=== PATIENT | male | born 1960 | race Caucasian/White ===

== ENCOUNTER → 2024-01-26 16:22 | Outpatient (REF) | payer OTHER, SELFPAY | LOC: RAD 16:22 | PROVIDERS: ATTENDING PHYSICIAN Internal Medicine Critical Care Medicine; FAMILY PHYSICIAN Internal Medicine | DX: R91.8 Other nonspecific abnormal finding of lung field (principal) | CPT/HCPCS: 71250 ==

== ENCOUNTER → 2024-08-23 09:00 | Outpatient (REF) | payer OTHER, SELFPAY | LOC: RAD 09:00 | PROVIDERS: ATTENDING PHYSICIAN Nurse Practitioner Adult Health; FAMILY PHYSICIAN Internal Medicine; REFERRING PHYSICIAN Internal Medicine Critical Care Medicine | DX: R09.02 Hypoxemia (principal); R06.02 Shortness of breath; F17.210 Nicotine dependence, cigarettes, uncomplicated | CPT/HCPCS: 71250; 93306 ==

== ENCOUNTER 2024-09-04 11:47 | Emergency (ER) | payer OTHER, SELFPAY ==
[2024-09-04] VITALS (11 sets, daily range): BP systolic 144–205; BP diastolic 97–163
--- NOTE | 2024-09-04 12:02 | ED.GENMED ---
ED Provider Triage
<Thiago Callejas PA-C - Last Filed: 09/04/24 12:05>
-
Patient seen by provider in Triage?: Seen in Triage
64-year-old male with history of COPD chronically on 2 L of oxygen presents with onset of scapular upper back pain and chest pain that is pleuritic in nature. He is associated with shortness of breath. The pain is made worse with deep breathing.
He is not requiring additional oxygen. No known injury.
EKG and labs ordered through triage. Ordered CT of chest PE protocol after discussing with radiology
History of Present Illness
<Thiago Callejas PA-C - Last Filed: 09/04/24 12:05>
General
Chief Complaint: Back Pain
Time Seen by Provider: 09/04/24 12:15
<Brandi Marshall DO - Last Filed: 09/04/24 19:30>
History of Present Illness
History of Present Illness:
64-year-old male with history of COPD on 2 L O2 and polycystic kidney disease presenting to the emergency department for difficulty breathing and back pain. Patient reports symptoms started about 6 PM yesterday. Denies any inciting injury or
trauma. Pain is worse with deep inspiration. Also notes increased cough, productive. Reports generalized chest wall pain. Denies fever. Denies abdominal pain or GI complaints. Reports that he has been increasing his oxygen at home. Denies
known history of blood clots. Denies additional acute medical complaints.
Past History
<Thiago Callejas PA-C - Last Filed: 09/04/24 12:05>
Past History
ED Past Medical History: Asthma, COPD, HTN, Hypercholesterolemia and Other (peptic ulcer with associated blood loss; scarlet fever, Chronic back pain, Polycystic kidney disease)
ED Past Surgical History: Orthopedic (Low back surgery)
Social History
Tobacco: Smoker
Alcohol: None
Drug: None
Personal:
Living: with family
Employment: Employed
Family History
Family History: Other (reviewed and Noncontributory)
Phy Exam
<Brandi Marshall DO - Last Filed: 09/04/24 19:30>
Physical Exam
Physical Exam:
General: Well-appearing, no clinical signs of dehydration, nontoxic and in no acute distress
HEENT: protecting airway
Neck: appears supple
CV: Normal heart rate, regular rhythm
Resp: No accessory muscle use, no increased work of breathing, rhonchorous breath sounds bilaterally
Abd: Soft and non-distended, no tenderness to palpation, normal bowel sounds
Extremities: No deformities, no swelling
Neuro: alert, no focal neurologic deficit
: deferred
Rectal: deferred
Psych: Normal affect
Skin: Intact
Course
<Thiago Callejas PA-C - Last Filed: 09/04/24 12:05>
Orders/Labs/Results
Orders:
Orders
09/04/24 12:01
Electrocardiogram (*1) Urgent
Reason for Study: Chest Pain
EKG- Treatment ONCE
09/04/24 12:03
Complete Blood Count/With Diff Urgent
Comprehensive Metabolic Panel Urgent
Troponin I Urgent
09/04/24 12:34
D-Dimer Urgent
PTT Urgent
09/04/24 12:44
COVID-19 Antigen Urgent
Source: Nasal Swab
09/04/24 13:47
CR Chest - 2 Views Urgent
Comment:
Reason For Exam: cough, SOB
09/04/24 14:53
Morphine Sulfate 4 mg IV NOW STA
09/04/24 14:59
Add On- LAB Urgent
Tests Added?: d-dimer
09/04/24 15:30
HYDROmorphone [Dilaudid] 1 mg IV NOW STA
09/04/24 16:20
CT Chest W/o Iv Contrast Urgent
Comment:
Reason For Exam: cough, SOB
09/04/24 19:25
Doxycycline [Vibramycin] 100 mg PO NOW STA
HYDROmorphone [Dilaudid] 1 mg IV NOW STA
Prednisone [Deltasone] 60 mg PO NOW STA
Abnormal Lab Results
09/04/24
12:03
WBC 11.7 H 10^3/uL
(4.8-10.8)
RBC 4.15 L 10^6/uL
(4.70-6.10)
Hgb 12.0 L g/dL
(13.0-18.0)
Hct 38.4 L %
(39.0-52.0)
MCHC 31.3 L g/dL
(33.0-37.0)
RDW 16.5 H %
(11.5-14.5)
Absolute Neuts (auto) 10.6 H 10^3/uL
(1.4-6.5)
Absolute Lymphs (auto) 0.5 L 10^3/uL
(1.2-3.4)
Neutrophils % 90.4 H %
(42.2-75.2)
Lymphocytes % 3.9 L %
(20.5-51.1)
Carbon Dioxide 21 L mmol/L
(22-30)
BUN 36 H mg/dl
(9-20)
Creatinine 2.5 H mg/dL
(0.7-1.3)
Glucose 156 H mg/dl
(70-99)
09/04/24 12:03
09/04/24 12:03
Vital Signs
Initial and Last Documented VS:
Initial Vital Signs
Temp Pulse Resp BP Pulse Ox
98.0 F 80 20 155/111 96
09/04/24 11:54 09/04/24 11:54 09/04/24 11:54 09/04/24 11:54 09/04/24 11:54
Last Documented Vital Signs
Temp Pulse Resp BP Pulse Ox
98.0 F 75 17 160/117 100
09/04/24 11:54 09/04/24 17:30 09/04/24 17:30 09/04/24 17:00 09/04/24 17:30
<Brandi Marshall, DO - Last Filed: 09/04/24 19:30>
Orders/Labs/Results
Orders:
Orders
09/04/24 12:01
Electrocardiogram (*1) Urgent
Reason for Study: Chest Pain
EKG- Treatment ONCE
09/04/24 12:03
Complete Blood Count/With Diff Urgent
Comprehensive Metabolic Panel Urgent
Troponin I Urgent
09/04/24 12:34
D-Dimer Urgent
PTT Urgent
09/04/24 12:44
COVID-19 Antigen Urgent
Source: Nasal Swab
09/04/24 13:47
CR Chest - 2 Views Urgent
Comment:
Reason For Exam: cough, SOB
09/04/24 14:53
Morphine Sulfate 4 mg IV NOW STA
09/04/24 14:59
Add On- LAB Urgent
Tests Added?: d-dimer
09/04/24 15:30
HYDROmorphone [Dilaudid] 1 mg IV NOW STA
09/04/24 16:20
CT Chest W/o Iv Contrast Urgent
Comment:
Reason For Exam: cough, SOB
09/04/24 19:25
Doxycycline [Vibramycin] 100 mg PO NOW STA
HYDROmorphone [Dilaudid] 1 mg IV NOW STA
Prednisone [Deltasone] 60 mg PO NOW STA
Abnormal Lab Results
09/04/24
12:03
WBC 11.7 H 10^3/uL
(4.8-10.8)
RBC 4.15 L 10^6/uL
(4.70-6.10)
Hgb 12.0 L g/dL
(13.0-18.0)
Hct 38.4 L %
(39.0-52.0)
MCHC 31.3 L g/dL
(33.0-37.0)
RDW 16.5 H %
(11.5-14.5)
Absolute Neuts (auto) 10.6 H 10^3/uL
(1.4-6.5)
Absolute Lymphs (auto) 0.5 L 10^3/uL
(1.2-3.4)
Neutrophils % 90.4 H %
(42.2-75.2)
Lymphocytes % 3.9 L %
(20.5-51.1)
Carbon Dioxide 21 L mmol/L
(22-30)
BUN 36 H mg/dl
(9-20)
Creatinine 2.5 H mg/dL
(0.7-1.3)
Glucose 156 H mg/dl
(70-99)
09/04/24 12:03
09/04/24 12:03
Vital Signs
Initial and Last Documented VS:
Initial Vital Signs
Temp Pulse Resp BP Pulse Ox
98.0 F 80 20 155/111 96
09/04/24 11:54 09/04/24 11:54 09/04/24 11:54 09/04/24 11:54 09/04/24 11:54
Last Documented Vital Signs
Temp Pulse Resp BP Pulse Ox
98.0 F 75 17 160/117 100
09/04/24 11:54 09/04/24 17:30 09/04/24 17:30 09/04/24 17:00 09/04/24 17:30
<Brandi Marshall DO - Last Filed: 09/04/24 19:30>
MDM/Problems Addressed
MDM/Problems Addressed:
64-year-old male with history of COPD on 2 L O2 presenting to the emergency department for cough, shortness of breath, back pain. Vital signs on arrival significant for mild hypertension.
On exam patient in no acute respiratory distress, stable on supplemental O2. Rhonchorous breath sounds bilaterally. Symptoms sound infectious in nature, reports worsening cough, pain with deep inspiration. No pleuritic nature of symptoms, PE is
also consideration. Protocol placed by physician health information assistant prior to my assessment, including CT of the chest. Feel reasonable. EKG obtained, nonischemic. Plan for laboratory analysis and continued respiratory monitoring.
12:40 - Patient with mild leukocytosis, again fitting with infection. No present SIRS criteria concern for sepsis
15:00 -chest x-ray without acute cardiopulmonary disease. Patient with elevated creatinine, GFR is less than 30, so unable to obtain CT PE study. Will add on D-dimer.
16:20 -dimer negative. At this time lower suspicion for PE. Patient however still symptomatic. Will obtain CT noncontrast
19:30 - CT shows show evidence of left-sided pneumonia. Patient remained stable from a respiratory standpoint, and in discussion with patient, would prefer to go home with outpatient management. Feel stable for discharge with outpatient follow-up,
will start on doxycycline. Will also treat with steroids given known COPD. Patient in agreement with plan. Return precautions discussed and patient verbalized understanding
<Brandi Marshall DO - Last Filed: 09/04/24 19:30>
*EKG
Interpreted by ED Provider?: Yes
EKG Intrepretation Date: 09/04/24
EKG Intrepretation Time: 12:39
Interpretation: normal
Heart Rate: 70
Rate: normal
Rhythm: sinus
[place]: normal axis
Interval: normal interval
QRS Pattern: normal QRS
Ischemia: no ischemia
*Critical Care Note
Total Time (30-74mins, 75-104mins- exclusive of procedures): Not Applicable
ED Attending Note
<Thiago Callejas PA-C - Last Filed: 09/04/24 12:05>
-
Portions of this chart may have been created with voice recognition software.� Occasional wrong word or��sound alike� substitutions may have occurred due to the inherent limitations of voice recognition software.
Discharge Plan
Departure
Patient Disposition: Home (Routine Discharge)
Date of Disposition: 09/04/24
Time of Disposition: 19:30
Patient with high blood pressure during this ER visit?: No
Condition: Good
Discharge Problem:
Community acquired pneumonia, Cough, Multifocal pneumonia
Instructions: Pneumonia, Adult (DC), Community-Acquired Pneumonia, Adult (DC)
Prescriptions:
New
doxycycline hyclate 100 mg capsule
100 mg PO BID 10 Days Qty: 20 0RF
prednisone 20 mg tablet
40 mg PO DAILY 5 Days Qty: 10 0RF
No Action
nifedipine 60 mg Tablet Extended Release 24hr
60 mg PO BID
terazosin 10 mg Capsule
10 mg PO HS
Jynarque 45 mg (AM)/ 15 mg (PM) Tablets, Sequential
1 ea PO BID
Trelegy Ellipta 100-62.5-25 mcg Blister With Device
1 inh INHALATION DAILY
prednisone 10 mg Tablet
30 mg PO DIRECTED
atorvastatin 20 mg Tablet
20 mg PO HS
metoprolol succinate 100 mg Tablet Extended Release 24 Hr
100 mg PO DAILY
dextroamphetamine-amphetamine [Adderall] 30 mg Tablet
30 mg PO DAILY
trazodone 100 mg Tablet
100 mg PO HS
pantoprazole 40 mg Tablet,Delayed Release (Dr/Ec)
40 mg PO BID
montelukast 10 mg Tablet
10 mg PO QPM
Centrum Silver Tablet
1 tab PO DAILY
duloxetine 60 mg Capsule,Delayed Release(Dr/Ec)
60 mg PO DAILY
Mucinex 1,200 mg Tablet Extended Release 12hr
1,200 mg PO BID
vitamin E98-nphkw acid
5,000 mcg PO DAILY
Referrals:
Jack Gao MD [Family Provider] -
Activity Restrictions/Additional Instructions:
You were seen in the emergency department for cough and back pain
You were found to have pneumonia. You were started on antibiotics. Please take as prescribed.
Please follow-up closely with your primary care physician.
Return to the emergency department for any worsening of your symptoms including increased difficulty breathing, or any development of chest pain, abdominal pain with persistent vomiting and inability to tolerate food or liquid by mouth (concern for
dehydration), weakness, headache or confusion, fever greater than 100.4, or any additional symptoms that are concerning to you.
Thank you for choosing [facility].
Interventions
Interventions:
*Risk Screen - Suicide Last Done: 09/04/24 11:54
*General Assessment Last Done: 09/04/24 11:54
*Neglect/Abuse Screening Last Done: 09/04/24 11:54
*ED COVID-19 Vaccine History Last Done: 09/04/24 11:54
ED-Musculoskeletal Assessment Last Done: 09/04/24 12:31
Discharge Date and Time
Print Language: CYMRAES
[2024-09-04 12:23] LABS: % Basophils 0.2 % (0-2); % Eosinophils 0.4 % (0-6); % Immature Granulocytes 0.3 % (0-0.5); % Lymphocytes 3.9 % (20.5-51.1); % Monocytes 4.8 % (1.7-9.3); % Neutrophils 90.4 % (42.2-75.2); Absolute Eosinophils 0.1 10^3/uL (0-0.7); Absolute Lymphocytes 0.5 10^3/uL (1.2-3.4); Absolute Monocytes 0.6 10^3/uL (0.1-0.6); Absolute Neutrophils 10.6 10^3/uL (1.4-6.5); Hematocrit 38.4 % (39.0-52.0); Mean Corp Hgb Conc. 31.3 g/dL (33.0-37.0); Mean Corpuscular Hgb 28.9 pg (27.0-31.0); Mean Corpuscular Volume 92.5 fL (80.0-94.0); Mean Platelet Volume 9.3 fL (7.4-10.4); Nucleated Red Blood Cells % 0 % (-); Platelet Count 277 10^3/uL (130-400); Red Blood Cell Count 4.15 10^6/uL (4.70-6.10); Red Cell Dist. Width 16.5 % (11.5-14.5); White Blood Cell Count 11.7 10^3/uL (4.8-10.8)
[2024-09-04 12:43] LABS: Troponin I < 0.012 ng/ml
[2024-09-04 12:44] LABS: ALT (SGPT) 24 U/L (0-50); AST (SGOT) 27 U/L (17-59); Albumin 4.2 g/dl (3.5-5.0); Alkaline Phosphatase 75 U/L (38-126); Blood Urea Nitrogen 36 mg/dl (9-20); Calcium 9.2 mg/dl (8.4-10.2); Carbon Dioxide 21 mmol/L (22-30); Chloride 105 mmol/L (98-107); Glucose 156 mg/dl (70-99); Potassium 5.1 mmol/L (3.5-5.1); Sodium 139 mmol/L (135-145); Total Bilirubin 0.7 mg/dl (0.2-1.3); Total Protein 6.9 g/dl (6.3-8.2); eGFR 28.34
[2024-09-04 12:50] LABS: APTT 30.6 Sec (23.4-35.0)
[2024-09-04 13:18] LABS: COVID-19 Antigen Negative (Negative)
[2024-09-04] MEDS: MORPHINE SULFATE 4 MG IV (14:58)
[2024-09-04] MEDS: DILAUDID 1 MG IV ×2 (15:35→19:37)
[2024-09-04 16:01] LABS: D-Dimer 0.34 ug/mlFEU (0.00-0.50)
[2024-09-04] MEDS: VIBRAMYCIN 100 MG PO (19:37)
[2024-09-04] MEDS: DELTASONE 60 MG PO (19:48)
== END 2024-09-04 20:07 | disposition home or self-care (01) ==
LOC: EMR 11:47
PROVIDERS: Physician Assistant; EMERGENCY PHYSICIAN Student in an Organized Health Care Education/Training Program; FAMILY PHYSICIAN Internal Medicine
DX: J18.9 Pneumonia, unspecified organism (principal); F17.200 Nicotine dependence, unspecified, uncomplicated; R05.9 Cough, unspecified; Z11.52 Encounter for screening for COVID-19
CPT/HCPCS: 99285; 96374; 96375; 96376; 71046; 71250; 80053; 84484; 85025; 85379; 85730; 87811; 93005

== ENCOUNTER 2024-10-08 13:01 | Emergency (ER) | payer OTHER, SELFPAY ==
[2024-10-08] VITALS (7 sets, daily range): BP systolic 133–162; BP diastolic 87–119; BMI 19.7
--- NOTE | 2024-10-08 14:51 | ED.GENMED ---
History of Present Illness
General
Chief Complaint: Breathing Problem
Time Seen by Provider: 10/08/24 14:51
History of Present Illness
History of Present Illness:
TIME OF INITIAL ENCOUNTER: 2:50 PM
HPI: Patient was diagnosed with pneumonia a month ago. Noncontrast CT suggested 'developing mild left lower lobe and right lower lobe pneumonia' at that time he was placed on doxycycline. There is no significant improvement so primary care doctor
put him on Levaquin 750 mg every other day (renal insufficiency). He later had a third course of antibiotics with Levaquin 250 mg daily for 10 days. He is concerned that he needs more IV antibiotic as he has rather significant pain. He does not
necessarily have any increased shortness of breath. States that he stopped smoking years ago and stopped vaping a few months ago.
EXAM:
GENERAL: Somewhat chronically ill-appearing, wearing nasal cannula oxygen
HEENT: Moist oral mucosa
CARDIOVASCULAR: No murmurs, normal heart rate, regular rhythm, No chest wall tenderness
PULMONARY: No respiratory distress, moving air well, no definite wheeze
ABDOMEN: Soft with no peritoneal signs, no tenderness
NEUROLOGIC: Excellent strength all extremities, no coordination deficits
PSYCHIATRIC: Appropriate mental status, normal insight and judgement
EXTREMITIES: Nontender, no edema, moves all extremities equally
SKIN: No rash, no lesions
NUMBER AND COMPLEXITY OF PROBLEMS ADDRESSED AT THE ENCOUNTER
� Chronic conditions affecting care: COPD, pneumonia, high blood pressure, hyperlipidemia, PCKD, T-cell lymphoma s/p radiation
� Acute Exacerbation and/or Progression of Chronic Illness: This is an acute but recurrent problem
� Differential Diagnosis includes: Pneumonia, PE, bronchitis
AMOUNT AND/OR COMPLEXITY OF DATA TO BE REVIEWED AND ANALYZED
� I performed an independent evaluation of and my interpretation is:
EKG: Sinus 81, nonspecific ST abnormality
CT:
X-rays: Chest x-ray shows mild hyperinflation with basilar opacities 'most likely related to subsegmental atelectasis/scarring' per the radiologist
Laboratory Studies: The white count is 7.0, hemoglobin 13.1, D-dimer 0.31, creatinine 2.8
Other:
� Review of other/old records: I relook at old records, I reviewed the CT report as summarized in HPI. When he was here last month, the white count was 11.7.
� Clinical information was obtained by an independent historian: I spoke to the brother at bedside
� Prescriptions/Medications Considered but not given:
� Further testing considered but not performed:
RISK OF COMPLICATIONS AND/OR MORBIDITY OR MORTALITY OF PATIENT MANAGEMENT
� Social determinants of health affecting care: Lives at home
� Discussion with other providers: I discussed case with Dr. Mendenhall who recommends checking CT as well but over wall no clear sign of need for inpatient treatment with IV antibiotics
� Escalation of care including admission/observation vs risk of discharge considered: The chest x-ray is relatively unremarkable.
ANY OTHER UPDATES:
5:15 PM: I reassessed patient. He is rather upset that he has not received anything for his pain. Cannot give NSAIDs due to his CKD. He states he has not been on anything other than Tylenol recently. He states he used to takes OxyContin. I
offered to give him Percocet however he says that he cannot wait and is upset that I did not offer Dilaudid. Will give a one-time dose of Dilaudid now. He states he is taking prednisone 20 mg.
6:10 PM: On assessment, the patient appears more comfortable after Dilaudid was given. CT imaging shows resolution of prior pneumonia. No indication for admission to the hospital for IV antibiotics.
Past History
Past History
ED Past Medical History: Asthma, COPD, HTN, Hypercholesterolemia and Other (peptic ulcer with associated blood loss; scarlet fever, Chronic back pain, Polycystic kidney disease)
ED Past Surgical History: Orthopedic (Low back surgery)
Social History
Tobacco: Smoker
Alcohol: None
Drug: None
Personal:
Living: with family
Employment: Employed
Family History
Family History: Other (reviewed and Noncontributory)
Phy Exam
Physical Exam
Physical Exam:
See HPI
Scores
Heart Failure Risk
Heart Failure Risk Score: Not Applicable
Course
Orders/Labs/Results
Orders:
Orders
10/08/24 13:07
Electrocardiogram (*1) Urgent
Reason for Study: Chest Pain
10/08/24 13:08
EKG- Treatment ONCE
CR Chest - 2 Views Urgent
Reason For Exam: sob
10/08/24 15:46
Basic Metabolic Panel Urgent
Complete Blood Count/With Diff Urgent
D-Dimer Urgent
10/08/24 15:50
CT Chest W/o Iv Contrast Urgent
Comment:
Reason For Exam: eval ?pneumonia; recommended by pulmonary; worsen
10/08/24 17:17
HYDROmorphone [Dilaudid] 1 mg IV NOW STA
Ondansetron Injectable [Zofran] 4 mg IV NOW STA
Abnormal Lab Results
10/08/24
15:46
RBC 4.38 L 10^6/uL
(4.70-6.10)
MCV 97.9 H fL
(80.0-94.0)
MCHC 30.5 L g/dL
(33.0-37.0)
RDW 15.2 H %
(11.5-14.5)
Absolute Lymphs (auto) 0.3 L 10^3/uL
(1.2-3.4)
Neutrophils % 92.7 H %
(42.2-75.2)
Lymphocytes % 3.6 L %
(20.5-51.1)
BUN 36 H mg/dl
(9-20)
Creatinine 2.8 H mg/dL
(0.7-1.3)
Glucose 139 H mg/dl
(70-99)
10/08/24 15:46
10/08/24 15:46
Vital Signs
Initial and Last Documented VS:
Initial Vital Signs
Temp Pulse Resp BP Pulse Ox
97.8 F 91 18 133/88 97
10/08/24 13:04 10/08/24 13:04 10/08/24 13:04 10/08/24 13:04 10/08/24 13:04
Last Documented Vital Signs
Temp Pulse Resp BP Pulse Ox
97.8 F 80 19 147/101 98
10/08/24 13:04 10/08/24 16:45 10/08/24 16:45 10/08/24 16:00 10/08/24 16:45
*Critical Care Note
Total Time (30-74mins, 75-104mins- exclusive of procedures): Not Applicable
ED Attending Note
-
Portions of this chart may have been created with voice recognition software.� Occasional wrong word or��sound alike� substitutions may have occurred due to the inherent limitations of voice recognition software.
Discharge Plan
Departure
Patient Disposition: Home (Routine Discharge)
Date of Disposition: 10/08/24
Time of Disposition: 18:06
Patient with high blood pressure during this ER visit?: Yes
Discharge Problem:
Pleurisy
Instructions: Pleurisy
Prescriptions:
No Action
nifedipine 60 mg Tablet Extended Release 24hr
60 mg PO BID
terazosin 10 mg Capsule
10 mg PO HS
Jynarque 45 mg (AM)/ 15 mg (PM) Tablets, Sequential
1 ea PO BID
Trelegy Ellipta 100-62.5-25 mcg Blister With Device
1 inh INHALATION DAILY
prednisone 10 mg Tablet
30 mg PO DIRECTED
atorvastatin 20 mg Tablet
20 mg PO HS
metoprolol succinate 100 mg Tablet Extended Release 24 Hr
100 mg PO DAILY
dextroamphetamine-amphetamine [Adderall] 30 mg Tablet
30 mg PO DAILY
trazodone 100 mg Tablet
100 mg PO HS
pantoprazole 40 mg Tablet,Delayed Release (Dr/Ec)
40 mg PO BID
montelukast 10 mg Tablet
10 mg PO QPM
Centrum Silver Tablet
1 tab PO DAILY
duloxetine 60 mg Capsule,Delayed Release(Dr/Ec)
60 mg PO DAILY
Mucinex 1,200 mg Tablet Extended Release 12hr
1,200 mg PO BID
vitamin P40-snjah acid
5,000 mcg PO DAILY
doxycycline hyclate 100 mg capsule
100 mg PO BID 10 Days Qty: 20 0RF
prednisone 20 mg tablet
40 mg PO DAILY 5 Days Qty: 10 0RF
Referrals:
Jaswinder Mendenhall MD [Active] - Follow up in 2-3 days
Jack Gao MD [Family Provider] -
Activity Restrictions/Additional Instructions:
We did give a one-time dose of Dilaudid. Your white blood cell count is normal. The blood clot screening test shows no sign of blood clot. Your kidney function is near baseline. EKG shows no acute abnormality, the CAT scan of the chest showed
'interval resolution of previously seen bilateral lower lobe pneumonia'. I spoke to Dr. Mendenhall (the on-call farm advisor) today�please follow-up with pulmonary
Interventions
Interventions:
*Risk Screen - Suicide Last Done: 10/08/24 13:04
*General Assessment Last Done: 10/08/24 13:04
*Neglect/Abuse Screening Last Done: 10/08/24 13:04
ED- Fall Risk Assessment Last Done: 10/08/24 13:22
*ED COVID-19 Vaccine History Last Done: 10/08/24 13:22
ED- Cardiac Assessment Last Done: 10/08/24 13:22
ED- Pulmonary Assessment Last Done: 10/08/24 13:22
Discharge Date and Time
Print Language: MOLDOVAN
[2024-10-08 15:56] LABS: % Basophils 0.1 % (0-2); % Eosinophils 0.1 % (0-6); % Immature Granulocytes 0.3 % (0-0.5); % Lymphocytes 3.6 % (20.5-51.1); % Monocytes 3.2 % (1.7-9.3); % Neutrophils 92.7 % (42.2-75.2); Absolute Lymphocytes 0.3 10^3/uL (1.2-3.4); Absolute Monocytes 0.2 10^3/uL (0.1-0.6); Absolute Neutrophils 6.5 10^3/uL (1.4-6.5); Hematocrit 42.9 % (39.0-52.0); Hemoglobin 13.1 g/dL (13.0-18.0); Mean Corp Hgb Conc. 30.5 g/dL (33.0-37.0); Mean Corpuscular Hgb 29.9 pg (27.0-31.0); Mean Corpuscular Volume 97.9 fL (80.0-94.0); Mean Platelet Volume 8.7 fL (7.4-10.4); Nucleated Red Blood Cells % 0 % (-); Platelet Count 255 10^3/uL (130-400); Red Blood Cell Count 4.38 10^6/uL (4.70-6.10); Red Cell Dist. Width 15.2 % (11.5-14.5)
[2024-10-08 16:11] LABS: D-Dimer 0.31 ug/mlFEU (0.00-0.50)
[2024-10-08 16:16] LABS: Blood Urea Nitrogen 36 mg/dl (9-20); Calcium 9.4 mg/dl (8.4-10.2); Carbon Dioxide 24 mmol/L (22-30); Chloride 106 mmol/L (98-107); Estimated Creatinine Clearance 25 ml/min; Glucose 139 mg/dl (70-99); Sodium 141 mmol/L (135-145); eGFR 24.74
[2024-10-08] MEDS: DILAUDID 1 MG IV (17:32)
[2024-10-08] MEDS: ZOFRAN 4 MG IV (17:33)
== END 2024-10-08 18:17 | disposition home or self-care (01) ==
LOC: EMR 13:01
PROVIDERS: EMERGENCY PHYSICIAN Emergency Medicine; FAMILY PHYSICIAN Internal Medicine
DX: R09.1 Pleurisy (principal); E78.00 Pure hypercholesterolemia, unspecified; J44.89 Other specified chronic obstructive pulmonary disease; F17.200 Nicotine dependence, unspecified, uncomplicated; I12.9 Hypertensive chronic kidney disease with stage 1 through stage 4 chronic kidney disease, or unspecified chronic kidney disease; N18.9 Chronic kidney disease, unspecified
CPT/HCPCS: 96374; 96375; 99285; 71046; 71250; 80048; 85025; 85379; 93005

== ENCOUNTER 2024-11-10 06:26 | Day surgery (SDC) | payer OTHER, SELFPAY ==
[2024-11-10 09:29] VITALS: BP 155/104
[2024-11-10 09:34] VITALS: BMI 19.7
[2024-11-10 09:37] VITALS: BMI 19.7
[2024-11-10 10:54] VITALS: BP 123/94
[2024-11-10 11:00] VITALS: BP 121/96
[2024-11-10 11:15] VITALS: BP 130/104
== END 2024-11-10 11:40 | disposition home or self-care (01) ==
LOC: GI 06:26
PROVIDERS: ATTENDING PHYSICIAN Specialist
DX: K92.1 Melena (principal); K22.89 Other specified disease of esophagus; K31.89 Other diseases of stomach and duodenum; K20.90 Esophagitis, unspecified without bleeding; K31.A0 Gastric intestinal metaplasia, unspecified
CPT/HCPCS: 43239; 88305; 88342

== ENCOUNTER 2024-12-06 23:55 | Inpatient (IN) | payer OTHER, SELFPAY ==
[2024-12-06 16:20] VITALS: BP 148/92
[2024-12-06 16:52] LABS: % Basophils 0.2 % (0-2); % Eosinophils 0.3 % (0-6); % Immature Granulocytes 0.4 % (0-0.5); % Lymphocytes 6.6 % (20.5-51.1); % Monocytes 2.8 % (1.7-9.3); % Neutrophils 89.7 % (42.2-75.2); Absolute Lymphocytes 0.7 10^3/uL (1.2-3.4); Absolute Monocytes 0.3 10^3/uL (0.1-0.6); Absolute Neutrophils 8.8 10^3/uL (1.4-6.5); Hematocrit 37.1 % (39.0-52.0); Hemoglobin 11.5 g/dL (13.0-18.0); Mean Corpuscular Hgb 28.9 pg (27.0-31.0); Mean Corpuscular Volume 93.2 fL (80.0-94.0); Mean Platelet Volume 9.7 fL (7.4-10.4); Nucleated Red Blood Cells % 0 % (-); Platelet Count 235 10^3/uL (130-400); Red Blood Cell Count 3.98 10^6/uL (4.70-6.10); Red Cell Dist. Width 13.2 % (11.5-14.5); White Blood Cell Count 9.8 10^3/uL (4.8-10.8)
[2024-12-06 17:04] LABS: ALT (SGPT) 26 U/L (0-50); APTT 31.6 Sec (23.4-35.0); AST (SGOT) 23 U/L (17-59); Albumin 4.1 g/dl (3.5-5.0); Alkaline Phosphatase 78 U/L (38-126); Blood Urea Nitrogen 32 mg/dl (9-20); Calcium 8.9 mg/dl (8.4-10.2); Carbon Dioxide 26 mmol/L (22-30); Chloride 101 mmol/L (98-107); Glucose 190 mg/dl (70-99); Sodium 137 mmol/L (135-145); Total Bilirubin 0.6 mg/dl (0.2-1.3); Total Protein 6.8 g/dl (6.3-8.2); eGFR 29.76
[2024-12-06 17:16] LABS: NT-proBNP 1790 pg/ml; Troponin I < 0.012 ng/ml
[2024-12-06 17:34] VITALS: BP 135/92
[2024-12-06 17:43] LABS: COVID-19 Antigen Negative (Negative)
--- NOTE | 2024-12-06 17:47 | ED.GENMED ---
History of Present Illness
General
Chief Complaint: Breathing Problem
Source: patient
Time Seen by Provider: 12/06/24 17:35
History of Present Illness
History of Present Illness:
64-year-old male presents to the emergency room complaining of shortness of breath, increased cough with increased mucus production and pain on the right side with breathing. Patient has a history of COPD. He is on chronic oxygen at 2 L. He has
noticed the above symptoms over the past week or so. He is increased his oxygen to 3 L which helped him some. He denies any recent travel or periods of immobilization. He is not been hospitalized recently. No known trauma.
Past History
Past History
ED Past Medical History: Asthma, COPD, HTN, Hypercholesterolemia and Other (peptic ulcer with associated blood loss; scarlet fever, Chronic back pain, Polycystic kidney disease)
ED Past Surgical History: Orthopedic (Low back surgery)
Social History
Tobacco: Smoker
Alcohol: None
Drug: None
Personal:
Living: with family
Employment: Employed
Family History
Family History: Other (reviewed and Noncontributory)
Phy Exam
Physical Exam
Physical Exam:
General: Awake, Alert, Oriented X3. Increased work of breathing, appears chronically ill with stigmata of COPD
Vitals: Afebrile, tachypneic
Head: Atraumatic
Eyes: Pupils equal, EOMI
Throat: Airway intact, no exudates
Neck: Trachea midline
Lungs: Decreased breath sounds diffusely, expiratory wheezing
Heart: Regular rate, no murmurs
Abd: Soft, Nontender, No pulsatile mass
Neuro: Nonfocal
Skin: Warm, dry, no rash
Extremities: pulses equal b/l, no edema
Scores
Heart Failure Risk
Heart Failure Risk Score: Not Applicable
Course
Orders/Labs/Results
Orders:
Orders
12/06/24 16:25
Electrocardiogram (*1) Urgent
Reason for Study: Shortness of Breath
CR Chest - 2 Views Urgent
Comment:
Reason For Exam: shortness of breath
12/06/24 16:36
COVID-19 Antigen Urgent
Source: Nasal Swab
Complete Blood Count/With Diff Urgent
Comprehensive Metabolic Panel Urgent
NT-proBNP Urgent
Comment: ADD ON
PTT Urgent
Troponin I Urgent
Influenza A+B Rapid Molecular Urgent
LAUREN Source: Nasal Swab
Specimen Description:
12/06/24 16:37
Add On- LAB Urgent
Tests Added?: pro BNP
12/06/24 17:45
0.9% Sodium Chloride 500 ml [Nss] 500 ml IV BOLUS
Ipratropium/Albuterol Sulfate [Duoneb] 3 ml INH R NOW STA
12/06/24 17:46
Ipratropium/Albuterol Sulfate [Duoneb] 3 ml INH R NOW STA
12/06/24 18:40
Oxycodone [Roxicodone] 5 mg PO NOW STA
12/06/24 19:33
Oxycodone [Roxicodone] 5 mg PO NOW STA
12/06/24 20:57
Doxycycline [Vibramycin] 100 mg PO NOW STA
12/06/24 21:22
Dexamethasone Sod Phosphate [Decadron] 10 mg IV NOW STA
12/06/24 21:51
Piperacillin/Tazo 2.25 Gram [Zosyn] 2.25 grams in 50 ml IV NOW
12/06/24 22:01
Code Status As Directed
Resuscitation Status: Full Code
PRN Pain Medication Management As Directed
May give lesser potent ordered pain med per pt: Yes
preference::
Protocol:: Medication orders for pain may be administered in a
manner that supports deferring to patient preference
when the pt is:
- Requesting an ordered lesser potent pain medication.
Least to most potent pain medications are defined
as: acetaminophen < NSAID < tramadol < opioids
(morphine, oxycodone, hydromorphone).
- Requesting a lesser dose of the same medication IF
ORDERED.
- Requesting a less intrusive route of administration
if both routes are prescribed by the provider (PO <
IV).
12/06/24 22:39
Admit/Transfer Patient As Directed
Co-Sign Provider:
Level of Care: Inpatient admission
Assign to:: Medical/Surgical
Physician / Group: brisa
Diagnosis: copd exacerbation
Reason for Hospitalization: copd exacerbation
Expected length of stay greater than two midnights?: Yes
ELOS- Estimated Length of Stay in days: 2
I certify the patient meets the requirements for IP care: Yes
PRN Pain Medication Management As Directed
May give lesser potent ordered pain med per pt: Yes
preference::
Protocol:: Medication orders for pain may be administered in a
manner that supports deferring to patient preference
when the pt is:
- Requesting an ordered lesser potent pain medication.
Least to most potent pain medications are defined
as: acetaminophen < NSAID < tramadol < opioids
(morphine, oxycodone, hydromorphone).
- Requesting a lesser dose of the same medication IF
ORDERED.
- Requesting a less intrusive route of administration
if both routes are prescribed by the provider (PO <
IV).
12/06/24 22:42
HYDROmorphone [Dilaudid] 0.5 mg IV NOW STA
12/06/24 23:00
Flush (0.9% Sodium Chloride) [Flush (Nss)] See Dose Instructions IV PER PROTOCOL
12/07/24 00:04
Ipratropium/Albuterol Sulfate [Duoneb] 3 ml INH R Q4HPRN PRN
12/07/24 00:04
Activity As Directed
Activity Level: As Tolerated
Intake/ Output As Directed
Frequency: Per unit guidelines
Vital Signs As Directed
Frequency: Per unit guidelines
Copd Education [RESP] Routine
DX Deep Vein Thrombosis Video Routine
12/07/24 05:09
Basic Metabolic Panel IN AM
Complete Blood Count/With Diff IN AM
12/07/24 08:00
Amphet Asp/Amphet/D-Amphet [Adderall] 10 mg PO BID
Dexamethasone Sod Phosphate [Decadron] 4 mg IV Q8
Duloxetine Delayed Release [Cymbalta Delayed Release] 60 mg PO DAILY
Escitalopram Oxalate [Lexapro] 5 mg PO DAILY
Guaifenesin [Mucinex] 1,200 mg PO BID
Heparin 5,000 units SC Q12
Ipratropium/Albuterol Sulfate [Duoneb] 3 ml INH R QID
Multivitamin [Theragran] 1 tablet PO DAILY
NIFEdipine EXTENDED RELEASE [Procardia Xl (Extended Release)] 60 mg PO DAILY
Pantoprazole [Protonix] 40 mg PO BID
Tolvaptan [Samsca] 45 mg PO DAILY
dextroamphetamine-amphetamine [Adderall XR] See Dose Instructions PO DAILY
12/07/24 Dinner
Regular
At Your Request: Full Participation
12/07/24 22:00
Atorvastatin [Lipitor] 20 mg PO HS
Metoprolol Xl [Toprol Xl] 100 mg PO HS
Montelukast Sodium [Singulair] 10 mg PO HS
Terazosin [Hytrin] 10 mg PO HS
Trazodone [Desyrel] 100 mg PO HS
Abnormal Lab Results
12/06/24
16:36
RBC 3.98 L 10^6/uL
(4.70-6.10)
Hgb 11.5 L g/dL
(13.0-18.0)
Hct 37.1 L %
(39.0-52.0)
MCHC 31.0 L g/dL
(33.0-37.0)
Absolute Neuts (auto) 8.8 H 10^3/uL
(1.4-6.5)
Absolute Lymphs (auto) 0.7 L 10^3/uL
(1.2-3.4)
Neutrophils % 89.7 H %
(42.2-75.2)
Lymphocytes % 6.6 L %
(20.5-51.1)
BUN 32 H mg/dl
(9-20)
Creatinine 2.4 H mg/dL
(0.7-1.3)
Glucose 190 H mg/dl
(70-99)
12/06/24 16:36
12/06/24 16:36
Vital Signs
Initial and Last Documented VS:
Initial Vital Signs
Temp Pulse Resp BP Pulse Ox
97.8 F 81 25 148/92 97
12/06/24 16:20 12/06/24 16:20 12/06/24 16:20 12/06/24 16:20 12/06/24 16:20
Last Documented Vital Signs
Temp Pulse Resp BP Pulse Ox
98.2 F 94 26 166/111 99
12/08/24 15:21 12/08/24 15:28 12/08/24 15:21 12/08/24 15:28 12/08/24 15:21
MDM/Problems Addressed
Differential Diagnosis Includes:
pneumonia, acute bronchitis, bronchiectasis, copd exacerbation
MDM/Problems Addressed:
Patient presents with persistent cough, increased oxygen requirement and shortness of breath. No evidence of pneumonia here. He did have significant wheezing which was treated with IV steroids and nebs. Consider discharge but given the fact the
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 Patient given a dose of
antibiotics here in the emergency room for acute exacerbation of COPD.
*Radiology
Radiology exam reviewed: preliminary read by ED provider (No infiltrate noted on my evaluation of the patient's chest x-ray. No other acute changes.)
*Pulse Oximetry
Patient hypoxic: yes
*EKG
Interpreted by ED Provider?: Yes
Heart Rate: 80
Rate: normal
Rhythm: sinus
Interval: normal interval
QRS Pattern: normal QRS
Ischemia: T-wave inversion (Laterally)
*Inspector Optical Instrument Interpretation
Rate: normal
Interpretation: normal
Rhythm: sinus
*Critical Care Note
Total Time (30-74mins, 75-104mins- exclusive of procedures): Not Applicable
Data Reviewed
Review of Other/Old Records Reveals: Radiology Studies
Patient Management
Social determinants of health affecting care: Strong social support
ED Attending Note
-
Portions of this chart may have been created with voice recognition software.� Occasional wrong word or��sound alike� substitutions may have occurred due to the inherent limitations of voice recognition software.
Discharge Plan
Departure
Patient Disposition: Admit
Date of Disposition: 12/06/24
Time of Disposition: 21:22
Presentation/result/management discussed w/ accepting MD/DO: Hospitalist
Patient with high blood pressure during this ER visit?: No
Condition: Good
Discharge Problem:
Acute bronchitis
Interventions
Interventions:
*Risk Screen - Suicide Last Done: 12/06/24 16:20
*General Assessment Last Done: 12/06/24 17:35
*Neglect/Abuse Screening Last Done: 12/06/24 17:35
ED- Fall Risk Assessment Last Done: 12/06/24 17:43
*ED COVID-19 Vaccine History Last Done: 12/06/24 17:35
ED- Cardiac Assessment Last Done: 12/06/24 17:42
ED- Pulmonary Assessment Last Done: 12/06/24 17:42
[2024-12-06] MEDS: DUONEB 3 ML INH ×2 (18:05)
[2024-12-06] MEDS: NSS 500 IV (18:11)
[2024-12-06] MEDS: ROXICODONE 5 MG PO (19:38)
[2024-12-06 20:02] VITALS: BP 157/112
[2024-12-06] MEDS: DECADRON 10 MG IV (21:34)
--- NOTE | 2024-12-06 22:06 | HPS.HSE ---
Addendum entered and electronically signed by Viviana Witt MD 12/06/24 22:50:
Patient became angry about not receiving IV antibiotics and wanted to go home. At the time of my interaction with him chest x-ray report had not been read so we agreed to give him Zosyn and stop antibiotics if chest x-ray does not show pneumonia.
His spouse wanted him to stay. He was also complaining of severe lower back pain secondary to polycystic kidney disease so giving him IV Dilaudid.
Original Note:
Family Physician
-
Family Physician: Jack Gao
Chief Complaint
-
cough
History of Present Illness
65-year-old male past medical history of polycystic kidney disease, CKD, hypertension, COPD on 2 L baseline, hyperlipidemia, anxiety, ADHD, insomnia, BPH, presenting with productive cough, shortness of breath, chest pain with cough, chills for the
past 10 days. He denies sore throat or fever. He has been having diarrhea for the past several days. Denies nausea vomiting or abdominal pain.
He was started on Z-Pb by his primary care physician which he completed without improvement. Normally takes 10 mg of prednisone baseline.
Patient was recently had 2 bouts of pneumonia recently treated few months ago.
He has chronic pain in his lower back due to polycystic kidney disease for which he usually takes Tylenol.
He is a former smoker. He denies alcohol use.
Medical History
Past Medical History
Past Medical History: Reports Other (polycystic kidney disease, CKD, hypertension, COPD on 2 L baseline, hyperlipidemia, anxiety, ADHD, insomnia, BPH)
Past Surgical History: Reports None
Social History
Tobacco: Former Smoker
Alcohol: None
Drug: None
Family History
Family History: Not pertinent
Allergies / Home Medications
Allergies reflects when Allergies were last updated in [facility]
Home Medications with original date entered in [facility]
Allergy/Medication List:
Allergies
Allergy/AdvReac Type Severity Reaction Status Date / Time
No Known Allergies Allergy Verified 12/06/24 16:24
Home Medications
atorvastatin 20 mg tablet 20 mg PO HS 06/14/23
duloxetine 60 mg capsule,delayed release 60 mg PO DAILY 06/14/23
guaifenesin 1,200 mg tablet, extended release 12 hr (Mucinex) 1,200 mg PO BID 06/14/23
metoprolol succinate 100 mg tablet,extended release 24 hr 100 mg PO HS 06/14/23
montelukast 10 mg tablet 10 mg PO HS 06/14/23
nifedipine 60 mg tablet,extended release 24 hr 60 mg PO DAILY 06/14/23
pantoprazole 40 mg tablet,delayed release 40 mg PO BID 06/14/23
prednisone 10 mg tablet 10 mg PO DAILY 06/14/23
terazosin 10 mg capsule 10 mg PO HS 06/14/23
trazodone 100 mg tablet 100 mg PO HS 06/14/23
albuterol sulfate 2.5 mg/0.5 mL solution for nebulization 5 mg inhalation R Q6HPRN PRN sob 11/10/24
albuterol sulfate 90 mcg/actuation aerosol inhaler 2 puff inhalation R Q6HPRN PRN sob 11/10/24
dextroamphetamine-amphetamine 10 mg tablet (Adderall) 10 mg PO BID 11/10/24
escitalopram oxalate 5 mg tablet (Lexapro) 5 mg PO DAILY 11/10/24
tamsulosin 0.4 mg capsule 0.4 mg PO DAILY 11/10/24
dextroamphetamine-amphetamine ER 30 mg 24hr capsule,extend release (Adderall XR) 30 mg PO DAILY 12/06/24
fluticasone fur. 200 mcg-umeclid 62.5 mcg-vilant 25 mcg inhalat.powder (Trelegy Ellipta) 1 inh inhalation R DAILY 12/06/24
therapeutic multivitamin 1 tab PO DAILY 12/06/24
tolvaptan (polycys kidney dis) 45 mg (AM)/15 mg (PM) tablets (Jynarque) 0 ea PO PER PKG DIR 12/06/24
Review of Systems
-
History Source: Patient
A 12 point ROS was completed and negative except as noted: Yes
Constitutional: Reports No Symptoms
EENT: Reports No Symptoms
Respiratory: Reports See HPI
Cardiac: Reports See HPI
Abdomen/GI: Reports No Symptoms
: Reports No Symptoms
Musculoskeletal: Reports No Symptoms
Skin: Reports No Symptoms
Neurological: Reports No Symptoms
Endocrine: Reports No Symptoms
Hematologic/Lymphatic: Reports No Symptoms
Psych: Reports No Symptoms
Physical Exam
Vital Signs
Vital Signs
Temp Pulse Resp BP Pulse Ox
97.8 F 89 18 157/112 100
12/06/24 16:20 12/06/24 20:30 12/06/24 20:30 12/06/24 20:02 12/06/24 20:30
Physical Exam
General: Well Developed, Well Nourished and No Apparent Distress
HEENT: NormoCephalic, Moist mucous membranes and Atraumatic
Respiratory: Wheezes
Cardiac: S1/S2 and Regular Rhythm; No Murmur or Rub
GI: Soft, Non Tender, Non Distended and Normal Bowel Sounds; No Organomegaly
Rectal: Deferred by Provider
Musculoskeletal: No Clubbing, No Cyanosis and No Edema
Skin: No Rash
Neuro: Nonfocal/grossly intact
Laboratory Results
-
12/06/24 16:36
12/06/24 16:36
Laboratory Results
APTT 31.6 Sec (23.4-35.0) 12/06/24 16:36
Total Bilirubin 0.6 mg/dl (0.2-1.3) 12/06/24 16:36
AST 23 U/L (17-59) 12/06/24 16:36
ALT 26 U/L (0-50) 12/06/24 16:36
Alkaline Phosphatase 78 U/L (38-126) 12/06/24 16:36
Troponin I < 0.012 ng/ml 12/06/24 16:36
Data Reviewed
-
Lab Data: Labs Reviewed by me
Old Records: Reviewed
Impression/Plan
-
IMPRESSION:
PLAN:
# Acute COPD exacerbation
# Chronic hypoxemic respiratory insufficiency on 2 L
-Chest x-ray does not appear to show any notable pneumonia
-COVID and influenza negative
-Patient treated with doxycycline, azithromycin and most recently Levaquin so he has received adequate antibiotics
-DuoNebs every 6 hours
-Dexamethasone 4 mg every 8 hours
-Mucinex
-Continue montelukast
-Tylenol, tramadol for pain
# Diarrhea possibly secondary to Z-Pb
-Ongoing
-Check stool studies, C. difficile, norovirus
Autosomal dominant polycystic kidney disease
CKD
-Renal function stable
-Continue tolvaptan
Essential hypertension
-Continue nifedipine
Hyperlipidemia
-Continue statin
Anxiety/depression
-Continue duloxetine, Lexapro
Insomnia
-Continue trazodone
ADHD
-Continue Adderall
GERD/peptic ulcer
-Continue Protonix
BPH
-continue terazosin
-Does not need to be on tamsulosin also we will discontinue
Full code
DVT prophylaxis�heparin
Regular diet
[2024-12-06] MEDS: DILAUDID 0.5 MG IV (23:08)
[2024-12-06] MEDS: ZOSYN 50 IV (23:08)
[2024-12-07] VITALS (12 sets, daily range): BP systolic 141–179; BP diastolic 96–130; O2SAT 98
[2024-12-07] MEDS: SINGULAIR 10 MG PO ×2 (01:44→20:38)
[2024-12-07] MEDS: LIPITOR 20 MG PO ×2 (01:44→20:38)
[2024-12-07] MEDS: HYTRIN 10 MG PO ×2 (01:44→20:38)
[2024-12-07] MEDS: DESYREL 100 MG PO ×2 (01:44→20:31)
[2024-12-07 05:33] LABS: % Immature Granulocytes 0.4 % (0-0.5); % Lymphocytes 5.4 % (20.5-51.1); % Monocytes 1.3 % (1.7-9.3); % Neutrophils 92.9 % (42.2-75.2); Absolute Lymphocytes 0.4 10^3/uL (1.2-3.4); Absolute Monocytes 0.1 10^3/uL (0.1-0.6); Absolute Neutrophils 6.5 10^3/uL (1.4-6.5); Hematocrit 33.2 % (39.0-52.0); Hemoglobin 10.4 g/dL (13.0-18.0); Mean Corp Hgb Conc. 31.3 g/dL (33.0-37.0); Mean Corpuscular Hgb 29.1 pg (27.0-31.0); Mean Platelet Volume 9.9 fL (7.4-10.4); Nucleated Red Blood Cells % 0 % (-); Platelet Count 217 10^3/uL (130-400); Red Blood Cell Count 3.57 10^6/uL (4.70-6.10); Red Cell Dist. Width 12.9 % (11.5-14.5)
[2024-12-07 05:58] LABS: Blood Urea Nitrogen 33 mg/dl (9-20); Calcium 8.6 mg/dl (8.4-10.2); Carbon Dioxide 26 mmol/L (22-30); Chloride 105 mmol/L (98-107); Estimated Creatinine Clearance 29 ml/min; Glucose 177 mg/dl (70-99); Potassium 4.3 mmol/L (3.5-5.1); Sodium 138 mmol/L (135-145); eGFR 31.32
[2024-12-07] MEDS: DUONEB 3 ML INH ×4 (08:05→19:37)
[2024-12-07] MEDS: DECADRON 4 MG IV ×2 (08:29→16:52)
[2024-12-07] MEDS: PROCARDIA XL (EXTENDED RELEASE) 60 MG PO (08:30)
[2024-12-07] MEDS: CYMBALTA DELAYED RELEASE 60 MG PO (08:30)
[2024-12-07] MEDS: PROTONIX 40 MG PO ×2 (08:32→20:26)
[2024-12-07] MEDS: THERAGRAN 1 TABLET PO (08:32)
[2024-12-07] MEDS: ADDERALL 10 MG PO (08:32)
[2024-12-07] MEDS: MUCINEX 1200 MG PO ×2 (08:33→20:26)
[2024-12-07] MEDS: HEPARIN 5000 UNITS SC ×2 (08:33→20:23)
--- NOTE | 2024-12-07 08:58 | W.PN.HOSP.TC ---
Today's Communication/Plan
-
IV steroids. Bronchodilators. PT OT
Assessment / Plan
Assessment / Plan
Physical exam:
General: Acutely ill
HEENT: Normocephalic, Atraumatic and Moist Mucous Membranes
Respiratory: Decreased breath sounds bilateral; scattered wheezes and rhonchi
Cardiac: Regular Rhythm and S1/S2
GI: Soft, Nontender and Nondistended
Musculoskeletal: No Clubbing, No Cyanosis and No Edema
Neuro: Awake, Alert and Oriented, no gross neurological deficits
Psych: Anxious
A/P:
# Acute COPD exacerbation
# Chronic hypoxemic respiratory insufficiency on 2 L
-Chest x-ray does not appear to show any notable pneumonia
-COVID and influenza negative
-Patient treated with doxycycline, azithromycin and most recently Levaquin so he has received adequate antibiotics. No need for antibiotics at this point
-DuoNebs every 6 hours
-Dexamethasone 4 mg every 8 hours
-Mucinex
-Continue montelukast
-Tylenol, tramadol for pain
-PT OT eval
# Diarrhea possibly secondary to Z-Pb
-Ongoing
-Check stool studies, C. difficile, norovirus
Autosomal dominant polycystic kidney disease
CKD
-Renal function stable
-Continue tolvaptan
Essential hypertension
-Continue nifedipine
Hyperlipidemia
-Continue statin
Anxiety/depression
-Continue duloxetine, Lexapro
Insomnia
-Continue trazodone
ADHD
-Continue Adderall
GERD/peptic ulcer
-Continue Protonix
BPH
-continue terazosin
-Does not need to be on tamsulosin also we will discontinue
Full code
DVT prophylaxis�heparin
Anticipated Discharge: 24 - 48 hours
Subjective/Interval History
-
Date of Service: December 07, 2024
Patient feels better today, less shortness of breath and cough. Afebrile. On supplemental oxygen
Objective Data
-
Labs:
Laboratory Results
12/07/24
05:09
WBC 7.0
Hgb 10.4 L
Hct 33.2 L
Plt Count 217
Sodium 138
Potassium 4.3
Chloride 105
Carbon Dioxide 26
BUN 33 H
Creatinine 2.3 H
Glucose 177 H
Calcium 8.6
Vital Signs:
Vital Signs
Temp Pulse Resp BP Pulse Ox
98.2 F 86 24 174/130 98
12/07/24 08:50 12/07/24 08:30 12/07/24 08:50 12/07/24 08:30 12/07/24 08:50
I&O
12/06/24 12/07/24 12/08/24
06:59 06:59 06:59
Intake Total 480 / 480
Output Total 800 / 800 350 / 350
Balance -320 / -320 -350 / -350
[2024-12-07] MEDS: SAMSCA 45 MG PO (10:38)
[2024-12-07] MEDS: LEXAPRO 5 MG PO (10:38)
[2024-12-07] MEDS: TYLENOL 1000 MG PO ×2 (14:24→22:03)
--- NOTE | 2024-12-07 17:34 | PTCARENOTE ---
Assumed care of patient, he is withdrawn and appears irritable. RN offered explanation and education on IV steroids and Samsca. Pt is upset we can not give him 1500mg Tylenol every 4 hours like he does at home. RN tried to explain why we can not
give that dose of tylenol here that frequently, pt did not want to hear education.
[2024-12-07] MEDS: DILAUDID 0.25 MG IV ×2 (17:41→22:03)
[2024-12-07] MEDS: APRESOLINE 10 MG IV (18:41)
[2024-12-07] MEDS: SAMSCA 15 MG PO (20:26)
[2024-12-07] MEDS: ADDERALL PO (20:29)
[2024-12-07] MEDS: TOPROL XL 100 MG PO (20:38)
[2024-12-08] MEDS: DECADRON 4 MG IV ×3 (00:06→20:36)
[2024-12-08] MEDS: TYLENOL PO (06:37)
[2024-12-08] MEDS: XOPENEX 1.25 MG INHALANT SOLUTION INH ×3 (07:20→21:30)
[2024-12-08 07:31] VITALS: BP 179/113
[2024-12-08 08:07] LABS: % Immature Granulocytes 0.4 % (0-0.5); % Lymphocytes 5.7 % (20.5-51.1); % Monocytes 3.7 % (1.7-9.3); % Neutrophils 90.2 % (42.2-75.2); Absolute Immature Granulocytes 0.1 10^3/uL (0-0.05); Absolute Lymphocytes 0.7 10^3/uL (1.2-3.4); Absolute Monocytes 0.5 10^3/uL (0.1-0.6); Absolute Neutrophils 11.6 10^3/uL (1.4-6.5); Hemoglobin 10.9 g/dL (13.0-18.0); Mean Corp Hgb Conc. 31.1 g/dL (33.0-37.0); Mean Corpuscular Hgb 28.5 pg (27.0-31.0); Mean Corpuscular Volume 91.6 fL (80.0-94.0); Mean Platelet Volume 10.1 fL (7.4-10.4); Nucleated Red Blood Cells % 0 % (-); Platelet Count 244 10^3/uL (130-400); Red Blood Cell Count 3.82 10^6/uL (4.70-6.10); Red Cell Dist. Width 13.3 % (11.5-14.5); White Blood Cell Count 12.9 10^3/uL (4.8-10.8)
[2024-12-08] MEDS: DILAUDID 0.25 MG IV ×4 (08:11→21:28)
[2024-12-08] MEDS: TYLENOL 1000 MG PO ×3 (08:11→23:06)
[2024-12-08] MEDS: PROCARDIA XL (EXTENDED RELEASE) 60 MG PO (08:12)
[2024-12-08] MEDS: ADDERALL 10 MG PO (08:12)
[2024-12-08] MEDS: MUCINEX 1200 MG PO ×2 (08:12→20:35)
[2024-12-08] MEDS: THERAGRAN 1 TABLET PO (08:12)
[2024-12-08] MEDS: PROTONIX 40 MG PO ×2 (08:12→20:38)
[2024-12-08] MEDS: LEXAPRO 5 MG PO (08:12)
[2024-12-08] MEDS: CYMBALTA DELAYED RELEASE 60 MG PO (08:12)
[2024-12-08] MEDS: HEPARIN 5000 UNITS SC ×3 (08:13→23:06)
[2024-12-08 08:40] LABS: Blood Urea Nitrogen 35 mg/dl (9-20); Calcium 9.1 mg/dl (8.4-10.2); Carbon Dioxide 26 mmol/L (22-30); Chloride 104 mmol/L (98-107); Estimated Creatinine Clearance 28 ml/min; Glucose 120 mg/dl (70-99); Potassium 4.2 mmol/L (3.5-5.1); Sodium 141 mmol/L (135-145); eGFR 29.76
--- NOTE | 2024-12-08 08:46 | PN.CDI ---
CDI
- -
CDI:
Physician Documentation Request
Admit Date: 12/06/24 23:55
Dear Doctor Nghia,
Please review the following and provide your response in the progress notes.
Clinical Indicators:
Pt admitted with Acute COPD exacerbation.
Pt noted with history of CKD
12/07 Progress note: 'CKD-Renal function stable'
Laboratory Tests
12/06/24 12/07/24 12/08/24
16:36 05:09 07:19
Creatinine 2.4 H 2.3 H 2.4 H
eGFR 29.76 31.32 29.76
Clarify which of the following accurately represents the patient's renal status:
CKD, please provide stage - see criteria
Other
Unable to determine
Stages of Chronic Kidney Disease*
Level Description GFR
G1 Normal or High >90
G2 Mildly decreased 60-89
G3a Mildly to moderately decreased 45-59
G3b Moderately to severely decreased 30-44
G4 Severely decreased 15-29
G5 Kidney failure <15
Use of terms such as suspected, likely, concern for, or probable (associated with a specific diagnosis that is being evaluated, monitored, or treated as if it exists) are acceptable and can be coded in the inpatient setting, when documented at the
time of discharge.
Thank you,
Mirian Mcfarland RN, BSN
CDI Specialist
[employer]
Please use your independent medical judgment in providing your response.
*Source: Kidney Disease: Improving Global Outcomes (KDIGO) 2012
--- NOTE | 2024-12-08 09:00 | W.PN.HOSP.TC ---
Addendum entered and electronically signed by Brandon Agrawal MD 12/08/24 15:27:
CKD stage IV
Original Note:
Today's Communication/Plan
-
Steroids, bronchodilators. CT of the chest
Assessment / Plan
Assessment / Plan
Physical exam:
General: Acutely ill
HEENT: Normocephalic, Atraumatic and Moist Mucous Membranes
Respiratory: Decreased breath sounds bilateral; scattered wheezes and rhonchi
Cardiac: Regular Rhythm and S1/S2
GI: Soft, Nontender and Nondistended
Musculoskeletal: No Clubbing, No Cyanosis and No Edema
Neuro: Awake, Alert and Oriented, no gross neurological deficits
Psych: Anxious
A/P:
Acute COPD exacerbation:
Continue IV steroids--> decrease IV dexamethasone from 4 mg every 8 hours down to every 12 hours today
Continue Xopenex
Add Pulmicort while inpatient
Obtain sputum culture
Plan for CT of the chest
Hold off on antibiotics for now and reevaluate after CT. He has received Doxy, azithromycin, Levaquin recently.
PT OT eval
Discussed with at bedside
Chronic hypoxic respiratory failure on home oxygen:
Continue 2 to 3 L of oxygen
Monitor respiratory status
Hypertension:
Uncontrolled--> will add oral hydralazine 25 mg p.o. 3 times daily
Continue nifedipine 60 mg p.o. daily and metoprolol succinate 100 mg p.o. nightly
IV hydralazine as needed
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
No further diarrhea while hospitalized so no need for any further testing
Hyperlipidemia:
Continue home statin
Tremors:
Suspect related to bronchodilators and steroids
Decreasing doses of those
Chronic kidney disease stage IV:
Avoid nephrotoxic
Monitor renal function
Polycystic kidney disease:
Continue tolvaptan
ADHD:
Continue Adderall but adjust doses
Depression with anxiety:
On Cymbalta, escitalopram, trazodone
DVT prophylaxis:
Heparin SQ
CODE STATUS:
Full code
Anticipated Discharge: > 48 hours
Subjective/Interval History
-
Date of Service: December 08, 2024
Patient still short of breath mostly on exertion, requiring supplemental oxygen. Still has some cough. Complains of some tremors and feeling jittery.
Objective Data
-
Labs:
Laboratory Results
12/08/24
07:19
WBC 12.9 H
Hgb 10.9 L
Hct 35.0 L
Plt Count 244
Sodium 141
Potassium 4.2
Chloride 104
Carbon Dioxide 26
BUN 35 H
Creatinine 2.4 H
Glucose 120 H
Calcium 9.1
Vital Signs:
Vital Signs
Temp Pulse Resp BP Pulse Ox
97.8 F 78 18 179/113 98
12/08/24 07:31 12/08/24 08:12 12/08/24 07:31 12/08/24 08:12 12/08/24 07:31
I&O
12/07/24 12/08/24 12/09/24
06:59 06:59 06:59
Intake Total 480 / 480 480 / 480
Output Total 800 / 800 2049
Balance -320 / -320 -1570 / -1570
[2024-12-08] MEDS: SAMSCA 45 MG PO (09:21)
[2024-12-08] MEDS: APRESOLINE 25 MG PO ×3 (09:25→20:37)
[2024-12-08 11:34] VITALS: BP 143/91
--- NOTE | 2024-12-08 13:30 | CM ---
CM reviewed medical records. Patient confirmed demographics. Patient denies history of VN, or SNF. Patient has oxygen from [facility] and has his portable at his bedside. Patient is active with his PCP. CM will continue to follow.
PLAN: home
[2024-12-08 15:21] VITALS: BP 166/111
[2024-12-08] MEDS: PULMICORT INH (15:26)
[2024-12-08] MEDS: SAMSCA 15 MG PO (17:25)
[2024-12-08] MEDS: DESYREL 100 MG PO ×2 (20:35→20:36)
[2024-12-08] MEDS: LIPITOR 20 MG PO (20:36)
[2024-12-08] MEDS: SINGULAIR 10 MG PO (20:37)
[2024-12-08] MEDS: HYTRIN 10 MG PO (20:37)
[2024-12-08] MEDS: TOPROL XL 100 MG PO (20:49)
[2024-12-08] MEDS: PULMICORT 0.25 MG INH (21:30)
[2024-12-08 23:00] VITALS: BP 175/128
[2024-12-08] MEDS: FLUSH (NSS) 2 FLUSH IV (23:08)
[2024-12-08] MEDS: APRESOLINE 10 MG IV (23:08)
[2024-12-09 01:11] VITALS: BP 153/93
[2024-12-09] MEDS: DILAUDID 0.25 MG IV ×2 (01:49→06:04)
[2024-12-09] MEDS: FLUSH (NSS) 2 FLUSH IV (01:50)
[2024-12-09] MEDS: TYLENOL 1000 MG PO ×3 (06:03→22:36)
[2024-12-09 07:28] VITALS: BP 171/112
[2024-12-09] MEDS: XOPENEX 1.25 MG INHALANT SOLUTION INH ×3 (07:56→20:05)
[2024-12-09] MEDS: PULMICORT 0.25 MG INH ×2 (07:56→20:04)
[2024-12-09] MEDS: PROTONIX 40 MG PO ×2 (08:56→19:12)
[2024-12-09] MEDS: APRESOLINE 25 MG PO ×3 (08:56→19:19)
[2024-12-09] MEDS: LEXAPRO 5 MG PO (08:56)
[2024-12-09] MEDS: PROCARDIA XL (EXTENDED RELEASE) 60 MG PO (08:57)
[2024-12-09] MEDS: CYMBALTA DELAYED RELEASE 60 MG PO (08:57)
[2024-12-09] MEDS: SAMSCA 45 MG PO (08:57)
[2024-12-09] MEDS: MUCINEX 1200 MG PO ×2 (08:57→19:11)
[2024-12-09] MEDS: THERAGRAN 1 TABLET PO (08:57)
[2024-12-09] MEDS: DECADRON 4 MG IV ×2 (08:58→19:12)
[2024-12-09] MEDS: HEPARIN 5000 UNITS SC ×2 (08:58→16:11)
--- NOTE | 2024-12-09 09:07 | W.PN.HOSP.TC ---
Today's Communication/Plan
-
Steroids and bronchodilators. Pain control
Assessment / Plan
Assessment / Plan
Physical exam:
General: Acutely ill
HEENT: Normocephalic, Atraumatic and Moist Mucous Membranes
Respiratory: Decreased breath sounds bilateral; scattered wheezes and rhonchi
Cardiac: Regular Rhythm and S1/S2
GI: Soft, Nontender and Nondistended
Musculoskeletal: No Clubbing, No Cyanosis and No Edema
Neuro: Awake, Alert and Oriented, no gross neurological deficits
Psych: Anxious
A/P:
Acute COPD exacerbation:
Continue IV steroids--> continue IV dexamethasone 4 mg every 12 hours today and will switch to oral tomorrow
Continue Xopenex
Add Pulmicort while inpatient
Obtain sputum culture
Plan for CT of the chest--> CT no evidence of pneumonia and some atelectasis.
Hold off on antibiotics since no need for. He has received Doxy, azithromycin, Levaquin recently.
Incentive spirometry
PT OT eval
Discussed with at bedside yesterday
Chronic hypoxic respiratory failure on home oxygen:
Continue 2 to 3 L of oxygen
Monitor respiratory status
Assess for home oxygen needs
Hypertension:
Uncontrolled but mostly driven by pain--> continue oral hydralazine 25 mg p.o. 3 times daily
Continue nifedipine 60 mg p.o. daily and metoprolol succinate 100 mg p.o. nightly
IV hydralazine as needed
Increase pain medication
Chronic back pain:
Continue narcotics but increase dose
Add Lidoderm patch
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
No further diarrhea while hospitalized so no need for any further testing
Hyperlipidemia:
Continue home statin
Tremors:
Suspect related to bronchodilators and steroids
Decreasing doses of those
Chronic kidney disease stage IV:
Avoid nephrotoxic
Monitor renal function
Polycystic kidney disease:
Continue tolvaptan
ADHD:
Continue Adderall but adjust doses
Depression with anxiety:
On Cymbalta, escitalopram, trazodone
DVT prophylaxis:
Heparin SQ
CODE STATUS:
Full code
Anticipated Discharge: Within 24 hours
Subjective/Interval History
-
Date of Service: December 09, 2024
Complains of pain in back. Less shortness of breath and cough. Afebrile
Objective Data
-
Labs:
Laboratory Results
12/09/24
09:00
WBC Pending
Hgb Pending
Hct Pending
Plt Count Pending
Sodium Pending
Potassium Pending
Chloride Pending
Carbon Dioxide Pending
BUN Pending
Creatinine Pending
Glucose Pending
Calcium Pending
Vital Signs:
Vital Signs
Temp Pulse Resp BP Pulse Ox
97.8 F 75 16 171/112 98
12/09/24 07:28 12/09/24 08:01 12/09/24 08:01 12/09/24 07:28 12/09/24 08:01
I&O
12/08/24 12/09/24 12/10/24
06:59 06:59 06:59
Intake Total 480 / 480 960 / 960
Output Total 2049 1375 / 1375
Balance -1570 / -1570 -415 / -415
[2024-12-09 09:45] LABS: % Basophils 0.1 % (0-2); % Eosinophils 0.1 % (0-6); % Immature Granulocytes 0.2 % (0-0.5); % Lymphocytes 11.1 % (20.5-51.1); % Monocytes 6.5 % (1.7-9.3); Absolute Lymphocytes 1.2 10^3/uL (1.2-3.4); Absolute Monocytes 0.7 10^3/uL (0.1-0.6); Absolute Neutrophils 8.6 10^3/uL (1.4-6.5); Hematocrit 35.4 % (39.0-52.0); Mean Corp Hgb Conc. 31.1 g/dL (33.0-37.0); Mean Corpuscular Hgb 28.5 pg (27.0-31.0); Mean Corpuscular Volume 91.7 fL (80.0-94.0); Mean Platelet Volume 10.2 fL (7.4-10.4); Nucleated Red Blood Cells % 0 % (-); Platelet Count 249 10^3/uL (130-400); Red Blood Cell Count 3.86 10^6/uL (4.70-6.10); Red Cell Dist. Width 13.5 % (11.5-14.5); White Blood Cell Count 10.5 10^3/uL (4.8-10.8)
[2024-12-09 10:08] LABS: Blood Urea Nitrogen 37 mg/dl (9-20); Calcium 8.9 mg/dl (8.4-10.2); Carbon Dioxide 29 mmol/L (22-30); Chloride 105 mmol/L (98-107); Estimated Creatinine Clearance 27 ml/min; Glucose 100 mg/dl (70-99); Potassium 4.6 mmol/L (3.5-5.1); Sodium 140 mmol/L (135-145); eGFR 28.34
[2024-12-09 10:23] VITALS: BP 147/93; PULSE 89; O2SAT 100
[2024-12-09] MEDS: LIDOCAINE 4% PATCH 1 PATCH TOPICAL (11:30)
[2024-12-09] MEDS: DILAUDID 0.5 MG IV ×3 (14:30→22:37)
--- NOTE | 2024-12-09 14:59 | RESPNOTE ---
patient was short of breath and felt he could not walk any longer,he did not desaturate but had labored breathing
[2024-12-09] MEDS: SAMSCA 15 MG PO (16:11)
[2024-12-09 16:13] VITALS: BP 142/88
--- NOTE | 2024-12-09 17:06 | CM ---
Pt lives with Elizabeth spouse . He has oxygen with [employer].
Offered VN he declined need.
PLAN Home no needs
[2024-12-09] MEDS: SINGULAIR 10 MG PO (19:19)
[2024-12-09] MEDS: HYTRIN 10 MG PO (19:19)
[2024-12-09] MEDS: LIPITOR 20 MG PO (19:19)
[2024-12-09] MEDS: TOPROL XL 100 MG PO (19:19)
[2024-12-09] MEDS: DESYREL 100 MG PO (22:36)
[2024-12-09 23:45] VITALS: BP 136/96
[2024-12-10] MEDS: HEPARIN 5000 UNITS SC ×2 (00:56→08:49)
[2024-12-10] MEDS: FLUSH (NSS) 3 FLUSH IV (04:25)
[2024-12-10] MEDS: DILAUDID 0.5 MG IV ×2 (04:25→08:47)
[2024-12-10] MEDS: PULMICORT 0.25 MG INH (07:24)
[2024-12-10] MEDS: XOPENEX 1.25 MG INHALANT SOLUTION INH ×2 (07:25→13:19)
[2024-12-10 07:53] VITALS: BP 179/110
--- NOTE | 2024-12-10 08:31 | W.PN.HOSP.TC ---
Today's Communication/Plan
-
Discharge planning today
Assessment / Plan
Assessment / Plan
Physical exam:
General: Well Developed, Well Nourished and No Apparent Distress
HEENT: Normocephalic, Atraumatic and Moist Mucous Membranes
Respiratory: Clear to Auscultation; Negative Wheezes, Rales or Rhonchi
Cardiac: Regular Rhythm and S1/S2
GI: Soft, Nontender and Nondistended
Musculoskeletal: No Clubbing, No Cyanosis and No Edema
Neuro: Awake, Alert and Oriented
Psych: Calm
A/P:
Acute COPD exacerbation:
On IV steroids--> switch to oral steroids today
Continue Xopenex
Add Pulmicort while inpatient
Obtain sputum culture
Plan for CT of the chest--> CT no evidence of pneumonia and some atelectasis.
Hold off on antibiotics since no need for. He has received Doxy, azithromycin, Levaquin recently.
Incentive spirometry
PT OT eval
Discussed with at bedside prior
Patient is ready for discharge
Chronic hypoxic respiratory failure on home oxygen:
Continue 2 to 3 L of oxygen
Monitor respiratory status
Assess for home oxygen needs
Hypertension:
Uncontrolled but mostly driven by pain--> continue oral hydralazine 25 mg p.o. 3 times daily
Continue nifedipine 60 mg p.o. daily and metoprolol succinate 100 mg p.o. nightly
IV hydralazine as needed
Increase pain medication
Chronic back pain:
Continue narcotics but increase dose
Add Lidoderm patch
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
No further diarrhea while hospitalized so no need for any further testing
Hyperlipidemia:
Continue home statin
Tremors:
Suspect related to bronchodilators and steroids
Decreasing doses of those
Chronic kidney disease stage IV:
Avoid nephrotoxic
Monitor renal function
Polycystic kidney disease:
Continue tolvaptan
ADHD:
Continue Adderall but adjust doses
Depression with anxiety:
On Cymbalta, escitalopram, trazodone
DVT prophylaxis:
Heparin SQ
CODE STATUS:
Full code
Anticipated Discharge: Today
Subjective/Interval History
-
Date of Service: December 10, 2024
Patient doing better overall. Afebrile.
Objective Data
-
Vital Signs:
Vital Signs
Temp Pulse Resp BP Pulse Ox
97.9 F 78 18 179/110 99
12/10/24 07:53 12/10/24 07:53 12/10/24 07:53 12/10/24 07:53 12/10/24 07:53
I&O
12/09/24 12/10/24 12/11/24
06:59 06:59 06:59
Intake Total 960 / 960 440 / 440
Output Total 1375 / 1375 500 / 500
Balance -415 / -415 -60 / -60
[2024-12-10] MEDS: LIDOCAINE 4% PATCH 1 PATCH TOPICAL (08:46)
[2024-12-10] MEDS: MUCINEX 1200 MG PO (08:48)
[2024-12-10] MEDS: LEXAPRO 5 MG PO (08:48)
[2024-12-10] MEDS: PROTONIX 40 MG PO (08:48)
[2024-12-10] MEDS: SAMSCA 45 MG PO (08:48)
[2024-12-10] MEDS: CYMBALTA DELAYED RELEASE 60 MG PO (08:48)
[2024-12-10] MEDS: TYLENOL 1000 MG PO (08:49)
[2024-12-10] MEDS: APRESOLINE 25 MG PO (08:49)
[2024-12-10] MEDS: PROCARDIA XL (EXTENDED RELEASE) 60 MG PO (08:49)
[2024-12-10] MEDS: DECADRON 4 MG IV (08:50)
[2024-12-10] MEDS: THERAGRAN 1 TABLET PO (08:50)
--- NOTE | 2024-12-10 10:15 | W.DCSUMMARY ---
Discharge Summary
Discharge Data
Date of Admission: 12/06/24
Date of Discharge: 12/10/24
-
Pending Results: No
Hospital Course
Patient is 64 years old male with history of polycystic kidney disease, CKD, hypertension, COPD, chronic hypoxic respiratory failure on home oxygen, hyperlipidemia, anxiety, ADHD, BPH, insomnia, came into the hospital with recurrence of shortness of
breath and cough. Patient was treated with multiple rounds of antibiotics prior to admission. Patient found to have a COPD exacerbation. He was not found to have any pneumonia and no antibiotics were given. He was given IV steroids and
bronchodilators. He had a CT scan of the chest showing evidence of his underlying COPD and no consolidations or infiltrates. Patient did well rest of the hospital stay. We were able to taper his course of steroids. He is on his regular home
oxygen. He worked with PT and OT and no needs identified. Patient blood pressure was on the high side so new blood pressure medications were added. Pain medications were given to his acute on chronic pain issues. Otherwise, patient feels ready
to go home. He will be discharged in relatively stable condition today.
Discharge duration: 34 minutes
Discharge Plan
-
Patient Disposition: Home (Routine Discharge)
Discharge Diagnosis/Procedures: Chronic obstructive pulmonary disease. Hypertension. Chronic pain. Chronic hypoxic respiratory failure on home oxgen.
Diet: Low Cholesterol
Activity: As tolerated
Driving Restrictions: As prior to admission
Blood Work: Please PCP to order CBC, BMP within 1 week
Referrals:
Robert Stapleton MD [Active] - in one to two weeks
Jack Gao MD [Family Provider] - in less than 1 week
Prescriptions:
New
lidocaine 4 % Adhesive Patch,Medicated
1 patch topical DAILY Qty: 4 0RF
hydralazine 25 mg Tablet
25 mg PO TID 30 Days Qty: 90 0RF
prednisone 10 mg Tablet
See Rx Instructions .ROUTE .COMPLEX Qty: 45 0RF
Rx Instructions:
Take By Mouth:
50 mg daily x3 days, 40 mg daily x3 days,
30 mg daily x3 days, 20 mg daily x3 days,
10 mg daily x3 days
Continued
nifedipine 60 mg Tablet Extended Release 24hr
60 mg PO DAILY
terazosin 10 mg Capsule
10 mg PO HS
prednisone 10 mg Tablet
10 mg PO DAILY
atorvastatin 20 mg Tablet
20 mg PO HS
metoprolol succinate 100 mg Tablet Extended Release 24 Hr
100 mg PO HS
trazodone 100 mg Tablet
100 mg PO HS
pantoprazole 40 mg Tablet,Delayed Release (Dr/Ec)
40 mg PO BID
montelukast 10 mg Tablet
10 mg PO HS
duloxetine 60 mg Capsule,Delayed Release(Dr/Ec)
60 mg PO DAILY
guaifenesin [Mucinex] 1,200 mg Tablet Extended Release 12hr
1,200 mg PO BID
tamsulosin 0.4 mg Capsule
0.4 mg PO DAILY
albuterol sulfate 90 mcg/actuation Hfa Aerosol Inhaler
2 puff INHALATION R Q6HPRN PRN (Reason: sob)
escitalopram oxalate [Lexapro] 5 mg Tablet
5 mg PO DAILY
albuterol sulfate 2.5 mg/0.5 mL Solution For Nebulization
5 mg INHALATION R Q6HPRN PRN (Reason: sob)
Rx Instructions:
patient takes it usually bid
therapeutic multivitamin Tablet
1 tab PO DAILY
dextroamphetamine-amphetamine [Adderall XR] 30 mg Capsule,Extended Release 24hr
30 mg PO DAILY
Jynarque 45 mg (AM)/ 15 mg (PM) Tablets, Sequential
0 ea PO PER PKG DIR
Rx Instructions:
takes 45mg at 0800, takes 15mg at 1500
Trelegy Ellipta 200-62.5-25 mcg Blister With Device
1 inh INHALATION R DAILY
Discontinued
dextroamphetamine-amphetamine [Adderall] 10 mg Tablet
10 mg PO BID
Discharge Orders:
Discharge Patient (As Directed); Ordered 12/10/24
Ordered By: Brandon Agrawal
Discharge Date and Time
Print Language: GEORGIAN
[2024-12-10] MEDS: PREVNAR 20 0.5 ML IM (12:16)
[2024-12-10] MEDS: AFLURIA (36 mos+) 2024-2025 FORMULA 0.5 ML IM (12:20)
[2024-12-10] MEDS: DELTASONE 40 MG PO (12:20)
[2024-12-10 12:38] VITALS: BP 147/88
== END 2024-12-10 14:09 | disposition home or self-care (01) | DRG 191 ==
LOC: 1 ACUTE 23:55
PROVIDERS: Emergency Medicine; ADMITTING PHYSICIAN Hospitalist; ATTENDING PHYSICIAN Hospitalist; EMERGENCY PHYSICIAN Emergency Medicine; FAMILY PHYSICIAN Internal Medicine
DX: J44.1 Chronic obstructive pulmonary disease with (acute) exacerbation (principal); J96.11 Chronic respiratory failure with hypoxia; N18.4 Chronic kidney disease, stage 4 (severe); Q61.2 Polycystic kidney, adult type; F17.200 Nicotine dependence, unspecified, uncomplicated; M54.50 Low back pain, unspecified; Z99.81 Dependence on supplemental oxygen; I12.9 Hypertensive chronic kidney disease with stage 1 through stage 4 chronic kidney disease, or unspecified chronic kidney disease; E78.00 Pure hypercholesterolemia, unspecified; F90.9 Attention-deficit hyperactivity disorder, unspecified type; F41.8 Other specified anxiety disorders; G89.29 Other chronic pain; Z11.52 Encounter for screening for COVID-19; Z60.2 Problems related to living alone
CPT/HCPCS: 71046; 71250; 80048; 80053; 83880; 84484; 85025; 85730; 87205; 87502; 87811; 90677; 93005; 94640; 96361; 96365; 96375; 97162; 99285; G0009

== ENCOUNTER 2025-06-13 21:17 | Emergency (ER) | payer OTHER, SELFPAY ==
[2025-06-13 21:21] VITALS: BP 191/117
[2025-06-13 23:16] VITALS: BMI 23.7
[2025-06-14 02:21] VITALS: BP 168/116
[2025-06-14 02:34] LABS: Hematocrit 27.3 % (39.0-52.0); Hemoglobin 8.7 g/dL (13.0-18.0)
--- NOTE | 2025-06-14 03:13 | ED.GENMED ---
History of Present Illness
General
Chief Complaint: Nose Bleed
Source: patient
Exam Limitations: none
Time Seen by Provider: 06/14/25 00:55
Nursing documentation reviewed up to this point in time: agreed with
History of Present Illness
History of Present Illness:
65-year-old male past medical history of asthma COPD hypertension hyperlipidemia presenting to the emergency department today with concerns of bleeding from the left nare starting around 730 no specific inciting event but does use chronic nasal
cannula. Denies trauma not on blood thinners. Denies any significant lightheadedness
Past History
Past History
ED Past Medical History: Asthma, COPD, HTN, Hypercholesterolemia and Other (peptic ulcer with associated blood loss; scarlet fever, Chronic back pain, Polycystic kidney disease)
ED Past Surgical History: Orthopedic (Low back surgery)
Social History
Tobacco: Smoker
Alcohol: None
Drug: None
Personal:
Living: with family
Employment: Employed
Family History
Family History: Other (reviewed and Noncontributory)
Review of Systems
Review of Systems
Allergies reviewed?: Yes
All Other Systems: ROS reviewed and negative except as documented in HPI and ROS
Phy Exam
Physical Exam
Physical Exam:
GENERAL: Alert , in no apparent distress
EYE: pupils equal and reactive
NECK: Supple, no significant adenopathy.
ENT: Left nare with active bleeding, large amount of clots. o/p clr, mmm.
CARDIAC: Regular rate and rhythm .
LUNGS: Clear breath sounds bilaterally, no acute respiratory distress, no wheezes/rales/rhonchi
ABDOMEN: Soft, without focal tenderness, no r/g, no cvat
NEUROLOGICAL: Alert and oriented, no focal neuro deficits
SKIN: Warm and dry, skin intact.
MUSCULOSKELETAL: No edema, well perfused.
PSYCH: Normal and appropriate interaction.
Course
Orders/Labs/Results
Orders:
Orders
06/14/25 02:25
H&H Urgent
Abnormal Lab Results
06/14/25
02:25
Hgb 8.7 L g/dL
(13.0-18.0)
Hct 27.3 L %
(39.0-52.0)
06/14/25 02:25
Vital Signs
Initial and Last Documented VS:
Initial Vital Signs
Temp Pulse Resp BP Pulse Ox
98.6 F 86 16 191/117 98
06/13/25 21:21 06/13/25 21:21 06/13/25 21:21 06/13/25 21:21 06/13/25 21:21
Last Documented Vital Signs
Temp Pulse Resp BP Pulse Ox
98.6 F 100 25 168/116 97
06/13/25 21:21 06/14/25 02:21 06/14/25 02:21 06/14/25 02:21 06/14/25 02:21
Procedures
Nosebleed
Drug treatment: Lidocaine and Epinephrine
Treatment: local pressure applied and Merocel packing
Post treatment bleeding: none- good control
MDM/Problems Addressed
MDM/Problems Addressed:
65-year-old male presenting to the emergency department with nasal bleed from the left nare none from the right. Visualizes an anterior bleed. Merisel packing placed to control. Patient observed for over an hour without any ongoing bleeding.
Stable to follow-up with ENT. Return precautions given.
*Pulse Oximetry
SaO2: 97
Oxygen Mode of Delivery: Simple mask
Patient hypoxic: no (97)
*Critical Care Note
Total Time (30-74mins, 75-104mins- exclusive of procedures): Not Applicable
ED Attending Note
-
Portions of this chart may have been created with voice recognition software.� Occasional wrong word or��sound alike� substitutions may have occurred due to the inherent limitations of voice recognition software.
Discharge Plan
Departure
Patient Disposition: Home (Routine Discharge)
Date of Disposition: 06/14/25
Time of Disposition: 03:15
Patient with high blood pressure during this ER visit?: No
Condition: Good
Covid-19: Not Applicable
Discharge Problem:
Acute anterior epistaxis
Instructions: Nosebleeds (DC)
Prescriptions:
No Action
nifedipine 60 mg Tablet Extended Release 24hr
60 mg PO DAILY
terazosin 10 mg Capsule
10 mg PO HS
prednisone 10 mg Tablet
10 mg PO DAILY
atorvastatin 20 mg Tablet
20 mg PO HS
metoprolol succinate 100 mg Tablet Extended Release 24 Hr
100 mg PO HS
trazodone 100 mg Tablet
100 mg PO HS
pantoprazole 40 mg Tablet,Delayed Release (Dr/Ec)
40 mg PO BID
montelukast 10 mg Tablet
10 mg PO HS
duloxetine 60 mg Capsule,Delayed Release(Dr/Ec)
60 mg PO DAILY
guaifenesin [Mucinex] 1,200 mg Tablet Extended Release 12hr
1,200 mg PO BID
tamsulosin 0.4 mg Capsule
0.4 mg PO DAILY
albuterol sulfate 90 mcg/actuation Hfa Aerosol Inhaler
2 puff INHALATION R Q6HPRN PRN (Reason: sob)
escitalopram oxalate [Lexapro] 5 mg Tablet
5 mg PO DAILY
albuterol sulfate 2.5 mg/0.5 mL Solution For Nebulization
5 mg INHALATION R Q6HPRN PRN (Reason: sob)
Rx Instructions:
patient takes it usually bid
therapeutic multivitamin Tablet
1 tab PO DAILY
dextroamphetamine-amphetamine [Adderall XR] 30 mg Capsule,Extended Release 24hr
30 mg PO DAILY
tolvaptan (polycys kidney dis) [Jynarque] 45 mg (AM)/ 15 mg (PM) Tablets, Sequential
0 ea PO PER PKG DIR
Rx Instructions:
takes 45mg at 0800, takes 15mg at 1500
Trelegy Ellipta 200-62.5-25 mcg Blister With Device
1 inh INHALATION R DAILY
lidocaine 4 % Adhesive Patch,Medicated
1 patch topical DAILY Qty: 4 0RF
hydralazine 25 mg Tablet
25 mg PO TID 30 Days Qty: 90 0RF
prednisone 10 mg Tablet
See Rx Instructions .ROUTE .COMPLEX Qty: 45 0RF
Rx Instructions:
Take By Mouth:
50 mg daily x3 days, 40 mg daily x3 days,
30 mg daily x3 days, 20 mg daily x3 days,
10 mg daily x3 days
azithromycin
1 tab PO QMWF
Rx Instructions:
1 tab orally
Referrals:
Travon Garcia MD [Active, ENT]
Jack Gao MD [Family Provider, Internal Medicine]
Activity Restrictions/Additional Instructions:
You came to the emergency department today with concerns of a nosebleed. Please leave the packing in place and follow-up closely with the ENT doctor in 2 return for any worsening, new or concerning symptoms.
Interventions
Interventions:
*Risk Screen - Suicide Last Done: 06/13/25 21:21
*General Assessment Last Done: 06/13/25 23:11
*Neglect/Abuse Screening Last Done: 06/13/25 21:21
*ED- Fall Risk Assessment Last Done: 06/13/25 23:11
*ED COVID-19 Vaccine History Last Done: 06/13/25 23:11
ED-EENT Assessment Last Done: 06/13/25 23:14
Discharge Date and Time
Print Language: SERBIAN
== END 2025-06-14 03:56 | disposition home or self-care (01) ==
LOC: EMR 21:17
PROVIDERS: Physician Assistant; EMERGENCY PHYSICIAN Emergency Medicine; FAMILY PHYSICIAN Internal Medicine
DX: R04.0 Epistaxis (principal); J44.89 Other specified chronic obstructive pulmonary disease; I10 Essential (primary) hypertension; E78.00 Pure hypercholesterolemia, unspecified; M54.9 Dorsalgia, unspecified; Q61.3 Polycystic kidney, unspecified; G89.29 Other chronic pain; Z99.81 Dependence on supplemental oxygen; Z87.11 Personal history of peptic ulcer disease; Z87.891 Personal history of nicotine dependence; Z87.01 Personal history of pneumonia (recurrent); Z85.72 Personal history of non-Hodgkin lymphomas; Z92.3 Personal history of irradiation; Z98.1 Arthrodesis status
CPT/HCPCS: 99283; 30901; 85014; 85018